=== PATIENT | female | born 1955 | race Caucasian/White ===

== ENCOUNTER 2020-09-21 17:16 | Emergency (ER) | payer MEDICARE, SELFPAY ==
--- NOTE | ~2020-09-21 | XR_ITS ---
EXAMINATION: XR toe 3rd RT min 2V INDICATION: Right third toe pain, initial encounter TECHNIQUE: Four views of the right third toe are obtained. COMPARISON: None available FINDINGS: There is an acute, traumatic, closed, comminuted fracture in the proximal shaft of the thir d proximal phalanx. Soft tissue swelling surrounds the fracture. 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 No additional acute osseous abnormality is identified. IMPRESSION: 1. Comminuted fracture of the proximal shaft of the third proximal phalanx. Reviewed, dictated and finalized at location A.
[2020-09-21 17:25] VITALS: BP 121/73; PULSE 71; RESP 16; TEMP 36.7; O2SAT 99
--- NOTE | 2020-09-21 17:38 | ED.LOWEXIN ---
HPI - Extremity Injury (Lower) General Chief Complaint: Extremity Injury, Lower Stated Complaint: right foot middle toe injury Time Seen by Provider: 09/21/20 17:42 Source: patient and RN notes reviewed Mode of arrival: ambulatory Limitations: no limitations History of Present Illness HPI Narrative: 65-year-old female presents with injury to the third digit of the right foot. Patient reports pain, swelling, deformity to the third digit of her right foot. Reports this afternoon she tripped over a toy and her toe appeared deformed so she darell taped it to the second digit. Reports some bruising and swelling. She reports taking 2 ibuprofen prior to arrival. She denies decreased strength, sensation. MD complaint: foot injury Related Data Home Medications Medication Instructions Recorded Confirmed levothyroxine 100 mcg PO DAILY 09/21/20 09/21/20 Allergies Allergy/AdvReac Type Severity Reaction Status Date / Time naproxen Allergy Intermediate Swelling Verified 09/21/20 17:30 of Lip/Tongue/Throat Review of Systems Review of Systems: CONSTITUTIONAL: Denies malaise, chills, sweats, or fever. SKIN: Denies rash or itching. MUSCULOSKELETAL: Denies back pain, joint pain, or myalgia. NEUROLOGIC: Denies numbness, weakness All systems reviewed & are unremarkable except as noted in HPI and below PMFSH Comments At time of signature, agree with nursing past medical, surgical, social and family history. There is no relevant family history pertinent to the presenting complaint Exam Narrative: GENERAL: Well-appearing, well-nourished, and in no acute distress. HEAD: Normocephalic, atraumatic. EYES: PERRLA, conjunctivae clear NECK: Supple. CHEST: Speaks in full sentences. No respiratory distress. HEART: Regular rate and rhythm. Normal and equal peripheral pulses. EXTREMITIES: Third digit of right foot has normal sensation, limited range of motion. Grossly normal strength mild edema, ecchymosis. Normal sensation with sensitivity to light touch and pain. Generalized digit tenderness. No open wounds, no skin tenting, no devitalized tissue or atrophy, no trophic changes, no obvious deformity, alignment normal, nearby joints and structures intact. Distal pulses palpable and equal bilaterally, skin warm, dry, pink. Capillary refill less than 3 seconds. SKIN: Warm, dry, no rash. NEURO: Alert and oriented x3. PSYCH: Normal mood and affect Course Course Emergency Course: Patient is aware of diagnosis, understands and agrees to treatment plan. Anticipatory guidance given. Patient agrees to follow-up as directed and is aware of reasons to seek care at the emergency department. Portions of this record may have been created with voice recognition software Vital Signs Vital signs: Vital Signs Temperature 98.1 F 09/21/20 17:25 Pulse Rate 71 09/21/20 17:25 Respiratory Rate 16 09/21/20 17:25 Blood Pressure 121/73 09/21/20 17:25 Pulse Oximetry 99 09/21/20 17:25 Temperature 98.1 F 09/21/20 17:25 Pulse Rate 71 09/21/20 17:25 Respiratory Rate 16 09/21/20 17:25 Blood Pressure 121/73 09/21/20 17:25 Pulse Oximetry 99 09/21/20 17:25 Reviewed. MDM - Extremity Injury (Lower) MDM Narrative Medical decision making narrative: Patients injury and pain is consistent with musculoskeletal etiology. No signs of neurological or vascular compromise on exam. Compartments and tissues are soft without signs of compartment syndrome. Pain is felt appropriate for further evaluation on an outpatient basis. Lab Data Lab results narrative: Patients injury and/or pain is consistent with musculoskeletal etiology. No signs of neurological or vascular compromise on exam. Compartments and tissues are soft without signs of compartment syndrome. Pain is felt appropriate for further evaluation on an outpatient basis. Imaging Data My impression: Images reviewed, interpreted by radiologist, agree, see report. Radiologist's impression:
== END 2020-09-21 17:50 | disposition home or self-care (01) ==
PROVIDERS: Emergency Provider Nurse Practitioner
DX: S92.511A Displaced fracture of proximal phalanx of right lesser toe(s), initial encounter for closed fracture (principal); W18.49XA Other slipping, tripping and stumbling without falling, initial encounter
CPT/HCPCS: 73660; 99214; G0463

== ENCOUNTER 2020-11-05 19:18 | Emergency (ER) | payer MEDICARE, SELFPAY ==
[2020-11-05 19:26] VITALS: BP 123/68; PULSE 79; RESP 14; TEMP 36.9; O2SAT 100
--- NOTE | 2020-11-05 19:37 | ED.SKABFB ---
HPI - Skin/Abscess/Foreign Bdy General Chief complaint: Skin/Abscess/Foreign Body Stated complaint: lac on finger Time Seen by Provider: 11/05/20 19:33 Source: patient and RN notes reviewed Mode of arrival: ambulatory Limitations: no limitations History of Present Illness HPI narrative: 65-year-old female presents for concern for dog bite to the fifth digit of the right hand. Reports earlier today she was bit by her dog. Reports she tried to close the wound with Steri-Strips, however noticed it was bleeding again. She reports she is up-to-date on her tetanus shot. She denies any other injuries or wounds. Denies proximal or distal pain, redness, swelling. MD complaint: laceration Related Data Home Medications Medication Instructions Recorded Confirmed levothyroxine 100 mcg PO DAILY 09/21/20 09/21/20 Allergies Allergy/AdvReac Type Severity Reaction Status Date / Time naproxen Allergy Intermediate Swelling Verified 11/05/20 19:42 of Lip/Tongue/Throat Review of Systems Review of Systems: CONSTITUTIONAL: Denies malaise, chills, sweats, or fever. SKIN: Reports dog bite to the fifth digit of the right hand MUSCULOSKELETAL: Denies muscle skeletal pain, decreased range of motion NEUROLOGIC: Denies numbness, weakness. All systems reviewed & are unremarkable except as noted in HPI and below PMFSH Comments At time of signature, agree with nursing past medical, surgical, social and family history. There is no relevant family history pertinent to the presenting complaint Exam Narrative: GENERAL: Well-appearing, well-nourished, and in no acute distress. HEAD: Normocephalic EYES: PERRLA, conjunctivae clear NECK: Supple. CHEST: Speaks in full sentences. No respiratory distress. HEART: Regular rate and rhythm. Normal and equal peripheral pulses. EXTREMITIES: Fifth digit of right hand has normal strength and sensation. 5/5 strength with digit flexion, extension. Range of motion normal. No cyanosis or edema noted. No musculoskeletal tenderness. Normal digital cascade with flexion of fingers, median, ulnar and radial nerve intact. Normal sensation of each side of finger. No scissoring. Good capillary refill and radial pulse. Distal capillary refill less than 3 seconds. SKIN: Warn, dry, intact, pink.. 1 cm irregular superficial laceration noted to the palmar aspect of the fifth digit of the right hand between the MIP and DIP joints without surrounding erythema, edema, induration or purulent drainage. NEURO: Alert and oriented x3. PSYCH: Normal mood and affect Course Course Emergency Course: Wound clean, closed with Steri-Strips, anticipatory guidance given. Patient is aware of diagnosis, understands and agrees to treatment plan. Anticipatory guidance given. Patient agrees to follow-up as directed and is aware of reasons to seek care at the emergency department. Portions of this record may have been created with voice recognition software Vital Signs Vital signs: Vital Signs Temperature 98.5 F 11/05/20 19:26 Pulse Rate 79 11/05/20 19:26 Respiratory Rate 14 11/05/20 19:26 Blood Pressure 123/68 11/05/20 19:26 Pulse Oximetry 100 11/05/20 19:26 Temperature 98.5 F 11/05/20 19:26 Pulse Rate 79 11/05/20 19:26 Respiratory Rate 14 11/05/20 19:26 Blood Pressure 123/68 11/05/20 19:26 Pulse Oximetry 100 11/05/20 19:26 Reviewed. MDM - Skin/Abscess/Foreign Bdy MDM Narrative Medical decision making narrative: Exam findings show no acute concerns or changes; patient is non-toxic appearing and is in no distress. Patient is appropriate for outpatient treatment and follow-up. Differential Diagnosis Differential diagnosis: Likely cellulitis and other (Laceration, abrasion) Critical Care Time Critical Care Time Critical Care Time: No Discharge Plan Discharge Clinical Impression: Dog bite Qualifiers: Encounter type: initial encounter Qualified Code(s): W54.0XXA - Bitten by dog, initial encount
== END 2020-11-05 19:57 | disposition home or self-care (01) ==
PROVIDERS: Emergency Provider Nurse Practitioner; PCP Family Medicine
DX: S61.216A Laceration without foreign body of right little finger without damage to nail, initial encounter (principal); W54.0XXA Bitten by dog, initial encounter
CPT/HCPCS: 99212; G0463

== ENCOUNTER 2021-04-02 11:14 | Emergency (ER) | payer MEDICARE, SELFPAY ==
--- NOTE | ~2021-04-02 | XR_ITS ---
EXAMINATION: XR ankle LT min 3V EXAM DATE: 04/02/2021 11:47 INDICATION: Tangled In Dog Leash 04/01/21. Lateral Pain Since. TECHNIQUE: Left ankle frontal, lateral and oblique projections obtained and reviewed. There is no pr ior study for comparison. FINDINGS: The left ankle mortise appears intact. There are no acute fractures or dislocations ident ified. There is no subcutaneous gas. The soft tissue is unremarkable. There are no radiopaque for eign bodies. IMPRESSION: 1. Unremarkable XR ankle LT min 3V exam. Reviewed, dictated and finalized at location B. LATION TECHNICIAN
[2021-04-02 11:25] VITALS: BP 114/68; PULSE 89; RESP 14; TEMP 37.4; O2SAT 98
--- NOTE | 2021-04-02 12:04 | ED.LOWEXIN ---
HPI - Extremity Injury (Lower) General Chief Complaint: Extremity Injury, Lower Stated Complaint: Fall Injury/Left Ankle Injury Time Seen by Provider: 04/02/21 12:04 Source: patient History of Present Illness HPI Narrative: injured left ankle while walking dog yesterday. no deformity no open areas noted denies any other injuries. Related Data Home Medications Medication Instructions Recorded Confirmed levothyroxine 100 mcg PO DAILY 09/21/20 04/02/21 diclofenac sodium 75 mg PO BID 04/02/21 04/02/21 Allergies Allergy/AdvReac Type Severity Reaction Status Date / Time naproxen Allergy Intermediate Swelling Verified 11/05/20 19:42 of Lip/Tongue/Throat Review of Systems Review of Systems: CONSTITUTIONAL: Denies fever, chills, or sweats. EYES: Denies visual changes, redness, or discharge. ENT: Denies rhinorrhea, congestion, sore throat, or otalgia. CARDIOVASCULAR: Denies chest pain, palpitations, or edema. RESPIRATORY: Denies cough or dyspnea. GASTROINTESTINAL: Denies abdominal pain, nausea, vomiting, or diarrhea. GENITOURINARY: Denies dysuria or hematuria. SKIN: Denies rash or itching. MUSCULOSKELETAL: Denies back pain, joint pain, or myalgia. NEUROLOGIC: Denies headache, numbness, or weakness. PSYCHIATRIC: Denies anxiety or depression. Allergic/Immunologic: Comments: At time of signature, agree with nursing past medical, surgical, social and family history. There is no relevant family history pertinent to the presenting complaint Exam Narrative: GENERAL: Well-appearing, well-nourished, and in no acute distress. HEAD: Normocephalic, atraumatic. EYES: PERRLA and EOMI. ENT: Nares clear, no rhinorrhea or epistaxis. Mucous membranes moist. NECK: Supple. CHEST: Clear to auscultation. No respiratory distress. HEART: Regular rate and rhythm. No murmur heard. Normal peripheral pulses. ABDOMEN: Soft, nontender, nondistended, normal active bowel sounds. EXTREMITIES: Normal range of motion. No edema. left ankle slight swelling to lateral side of ankle SKIN INTACT. NORMAL DP PULSE, NORMAL CAP REFILL. NORMAL SENSATION. SKIN: Warm, dry, no rash. NEURO: No focal deficits. Alert and oriented x3. [place] Coma Scale Eye Opening: Spontaneous 4 [place] Coma Scale Motor: Obeys Commands 6 Claudia Coma Scale Verbal: Oriented 5 [place] Coma Scale Total 15 Course Course Level of Care: Express Care Visit Vital Signs Vital signs: Vital Signs Temperature 37.4 C 04/02/21 11:25 Pulse Rate 89 04/02/21 11:25 Respiratory Rate 14 04/02/21 11:25 Blood Pressure 114/68 04/02/21 11:25 Pulse Oximetry 98 04/02/21 11:25 Temperature 37.4 C 04/02/21 11:25 Pulse Rate 89 04/02/21 11:25 Respiratory Rate 14 04/02/21 11:25 Blood Pressure 114/68 04/02/21 11:25 Pulse Oximetry 98 04/02/21 11:25 DISCUSSED WITH PATIENT, X-RAY FINDINGS AND THAT X-RAYS WERE NEGATIVE FOR FRACTURE OR DISLOCATIONS. X-RAYS CANNOT RULE OUT TENDON, LIGAMENT, OR SOFT TISSUE STRUCTURE INJURIES AND IF SYMPTOMS PERSIST OR WORSEN, FURTHER EVALUATION MAY BE WARRANTED FOR POTENTIAL IMAGING. ADVISED REST, ICE, COMPRESSION, AND ELEVATION. IF PRESCRIBED ANY MEDICATIONS, TAKE DIRECTED. IF PRESCRIBED MUSCLE RELAXERS, DO NOT DRINK ALCOHOL, DRIVE, OR OPERATE ANY HEAVY MACHINERY WHILE TAKING. INSTRUCTED ON WHEN TO F/U WITH PCP AND CRITICAL RED FLAGS S/S DISCUSSED TO WHEN TO RETURN TO THE [facility] OR GO TO THE EMERGENCY DEPARTMENT. PATIENT/FAMILY UNDERSTAND IMPORTANCE OF CLOSE OBSERVATION AND RETURNING OR GOING TO THE EMERGENCY ROOM IF ANY WORSENING CONDITION. . MDM - Extremity Injury (Lower) Differential Diagnosis Differential diagnosis: Likely ankle sprain and strain, acute internal derangement of knee, fracture of femur, fracture of hip, puncture wound of foot, fracture of toe and ankle fracture Imaging Data Attestation: I personally reviewed and interpreted this imaging study as follows: My impression: Normal ankle exam Radiologist's
== END 2021-04-02 12:10 | disposition home or self-care (01) ==
PROVIDERS: Emergency Provider Nurse Practitioner Family; PCP Family Medicine
DX: S93.402A Sprain of unspecified ligament of left ankle, initial encounter (principal); S96.912A Strain of unspecified muscle and tendon at ankle and foot level, left foot, initial encounter; X58.XXXA Exposure to other specified factors, initial encounter; Y93.K1 Activity, walking an animal; E03.9 Hypothyroidism, unspecified
CPT/HCPCS: 73610; 99213; G0463

== ENCOUNTER 2022-03-17 08:58 | Emergency (ER) | payer MEDICARE, SELFPAY ==
[2022-03-17 09:03] VITALS: BP 128/73; PULSE 100; RESP 16; TEMP 36.9; O2SAT 98
--- NOTE | 2022-03-17 09:11 | ED.URI ---
HPI - URI/Sore Throat General Chief Complaint: Upper Respiratory Infection Stated Complaint: Cough Time Seen by Provider: 03/17/22 09:12 History of Present Illness HPI Narrative: Patient presents with a week's worth of nasal congestion cough. No shortness of breath no chest pain no fever. Patient has taken DayQuil and NyQuil and Mucinex for her symptoms. Patient states she has a productive cough at times but her cough is worse when she lays down at night. Related Data Home Medications Medication Instructions Recorded Confirmed levothyroxine 100 mcg tablet 100 mcg PO DAILY 09/21/20 03/17/22 Allergies Allergy/AdvReac Type Severity Reaction Status Date / Time naproxen Allergy Intermediate Swelling Verified 03/17/22 09:16 of Lip/Tongue/Throat Review of Systems Review of Systems: CONSTITUTIONAL: Denies chills, or sweats. Reports fever and generalized body aches EYES: Denies visual changes, redness, or discharge. ENT: Denies otalgia. Reports nasal congestion runny nose and sore throat CARDIOVASCULAR: Denies chest pain, palpitations, or edema. RESPIRATORY: Denies dyspnea. Reports occasional cough GASTROINTESTINAL: Denies abdominal pain, nausea, vomiting, or diarrhea. GENITOURINARY: Denies dysuria or hematuria. SKIN: Denies rash or itching. MUSCULOSKELETAL: Denies back pain, joint pain, or myalgia. Reports generalized body aches NEUROLOGIC: Denies headache, numbness, or weakness. PSYCHIATRIC: Denies anxiety or depression. PMFSH Comments At time of signature, agree with nursing past medical, surgical, social and family history. There is no relevant family history pertinent to the presenting complaint Exam Narrative: The patient is a well-developed, well-nourished in no acute distress. SKIN: Skin is warm and dry without erythema, swelling or exudate. There is good turgor. No tenting. HEAD: Atraumatic. Normocephalic. No temporal or scalp tenderness. EYES: Moist and bright. Sclera and conjunctivae normal. No discharge. PERRLA. Extraocular motions intact. Gross visual acuity intact. EARS: Pinna is normal shape and contour. Clear external auditory canals. TM pearly limon with good cone of light, no erythema or suppuration. Bilateral cerumen noted no gross hearing deficit. NOSE: pink, moist mucosa with good air movement. Clear rhinorrhea without nasal flaring. Septum midline. Mouth: moist mucous membranes. THROAT; mild erythema noted to posterior oropharynx with moderate postnasal drainage. Without exudate or ulceration.. Uvula midline. Normal movement of soft palate. NECK: Supple and nontender with full range of motion without discomfort. No meningeal signs. LUNGS: Equal and bilateral breath sounds without wheezes, rales or rhonchi. CHEST: The chest wall is without retractions or use of accessory muscles. HEART: Has a regular rate and rhythm without murmur, gallops, click or rub. ABDOMEN: Soft, nontender with positive active bowel sounds. No rebound tenderness. EXTREMITIES: Without cyanosis, clubbing or edema. Equal 2+ distal pulses and 2 second capillary refill noted. NEUROLOGIC: alert, active, . The patient moves all extremities with normal muscle strength. Normal muscle tone is noted. Normal coordination is noted. NO focal neurological findings noted. Course Course Level of Care: Express Care Visit Vital Signs Vital signs: Vital Signs Temperature 36.9 C 03/17/22 09:03 Pulse Rate 100 03/17/22 09:03 Respiratory Rate 16 03/17/22 09:03 Blood Pressure 128/73 03/17/22 09:03 Pulse Oximetry 98 03/17/22 09:03 Oxygen Delivery Room Air 03/17/22 09:03 Temperature 36.9 C 03/17/22 09:03 Pulse Rate 100 03/17/22 09:03 Respiratory Rate 16 03/17/22 09:03 Blood Pressure 128/73 03/17/22 09:03 Pulse Oximetry 98 03/17/22 09:03 Oxygen Delivery Room Air 03/17/22 09:03 MDM - URI/Sore Throat Differential Diagnosis Differential diagnosis: Likely upper respiratory infection, croup, ot
== END 2022-03-17 09:31 | disposition home or self-care (01) ==
PROVIDERS: Emergency Provider Nurse Practitioner Family; PCP Family Medicine
DX: J06.9 Acute upper respiratory infection, unspecified (principal); R09.82 Postnasal drip
CPT/HCPCS: 99213; G0463

== ENCOUNTER 2023-03-25 10:06 | Emergency (ER) | payer MEDICARE, SELFPAY ==
[2023-03-25 10:20] VITALS: BP 128/73; PULSE 86; RESP 16; TEMP 36.8; O2SAT 100
--- NOTE | 2023-03-25 10:34 | ED.BACK ---
HPI - Back Pain/Injury General Chief Complaint: Back Pain/Injury Stated Complaint: Back pain/Nausea Time Seen by Provider: 03/25/23 10:37 Source: patient and RN notes reviewed Mode of arrival: ambulatory Limitations: no limitations History of Present Illness HPI Narrative: 68 year old female presents with concern for back pain for 2 days. Reports back pain is at her bra line. Reports it hurts worse with twisting, reaching her arm. She denies injury or trauma. She reports she has been taking ibuprofen and it does provide relief. She denies fever, abdominal pain, urine frequency, urgency, weakness in any extremity. She denies rash or bruising. MD elicited complaint: back pain Related Data Home Medications Medication Instructions Recorded Confirmed levothyroxine 100 mcg tablet 100 mcg PO DAILY 09/21/20 03/17/22 Allergies Allergy/AdvReac Type Severity Reaction Status Date / Time naproxen Allergy Intermediate Swelling Verified 03/17/22 09:16 of Lip/Tongue/Throat Review of Systems Review of Systems: CONSTITUTIONAL: Denies malaise, chills, sweats, or fever. CARDIOVASCULAR: Denies chest pain, palpitations, or edema. RESPIRATORY: Denies cough or dyspnea. GASTROINTESTINAL: Denies abdominal pain, nausea, vomiting, diarrhea, loss of bowel function GENITOURINARY: Denies dysuria, hematuria, frequency, loss of bladder function. SKIN: Denies rash or itching. MUSCULOSKELETAL: Reports mid back pain NEUROLOGIC: Denies numbness, weakness, or headache. All systems reviewed & are unremarkable except as noted in HPI and below PMFSH Comments At time of signature, agree with nursing past medical, surgical, social and family history. There is no relevant family history pertinent to the presenting complaint Exam Narrative: GENERAL: Well-appearing, well-nourished, and in no acute distress. HEAD: Normocephalic, atraumatic. EYES: PERRLA and EOMI. NECK: Supple. No lymphadenopathy. CHEST: Clear to auscultation. No respiratory distress. HEART: Regular rate and rhythm. Distal pulses palpable and equal, cap refill <3 seconds ABDOMEN: Soft, nontender, nondistended, normal active bowel sounds, no palpable or pulsatile masses. No CVA tenderness MUSCULOSKELETAL: Normal range of motion and strength in all extremities; 5/5 strength with hip flexion and extension, dorsiflexion and extension, knee flexion and extension, plantar flexion and extension. Normal sensation in dermatomal distributions with sensitivity to light touch and pain. No midline back tenderness to palpation. No paraspinal tenderness. Transfers from lying to sitting to standing. SKIN: Warm, dry, no rash. No ecchymosis, erythema, open wounds to back. NEURO: No focal deficits. Alert and oriented x3. Normal gait. PSYCH: Normal mood and affect Course Course Emergency Course: Patient is aware of diagnosis, understands and agrees to treatment plan. Anticipatory guidance given. Patient agrees to follow-up as directed and is aware of reasons to seek care at the emergency department. Portions of this record may have been created with voice recognition software Level of Care: Express Care Visit Vital Signs Vital signs: Vital Signs Temperature 98.3 F 03/25/23 10:20 Pulse Rate 86 03/25/23 10:20 Respiratory Rate 16 03/25/23 10:20 Blood Pressure 128/73 03/25/23 10:20 Pulse Oximetry 100 03/25/23 10:20 Oxygen Delivery Room Air 03/25/23 10:20 Temperature 98.3 F 03/25/23 10:20 Pulse Rate 86 03/25/23 10:20 Respiratory Rate 16 03/25/23 10:20 Blood Pressure 128/73 03/25/23 10:20 Pulse Oximetry 100 03/25/23 10:20 Oxygen Delivery Room Air 03/25/23 10:20 Reviewed. MDM - Back Pain/Injury MDM Narrative Medical decision making narrative: No risk factors or findings concerning for epidural abscess, diskitis, vertebral osteomyelitis, cord compression, cauda equina, vertebral fracture or bone malignancy, AAA, or pyelonephritis. Patien
== END 2023-03-25 10:50 | disposition home or self-care (01) ==
PROVIDERS: Emergency Provider Nurse Practitioner; PCP Family Medicine
DX: M54.6 Pain in thoracic spine (principal); E03.9 Hypothyroidism, unspecified
CPT/HCPCS: 81003; 87086; 99213; G0463